=== PATIENT | male | born 2000 ===

== ENCOUNTER 2021-06-08 07:00 | Emergency (ER) | payer OTHER ==
[~2021-06-08] VITALS: Ht 177.8 cm; Wt 54.4 kg
[2021-06-08] MEDS ORDERED: LEVSIN/SL0.125 MG SL (13:19)
[2021-06-08] MEDS ORDERED: CARAFATE1 GM PO (13:19)
[2021-06-08] MEDS ORDERED: PEPCID AC20 MG PO (13:19)
== END 2021-06-08 13:45 | disposition home or self-care (01) ==
LOC: ER 07:00
DX: K29.60 Other gastritis without bleeding (principal)